=== PATIENT | female | born 1940 | race Caucasian/White ===

== ENCOUNTER 2018-08-15 15:08 | Inpatient (IN) | payer MEDICARE, MEDICAID ==
[~2018-08-15] VITALS: Ht 165.1 cm; Wt 67.1 kg
[2018-08-15 15:31] LABS: BASOPHILS # (AUTO) 0.1 K/uL (0.0-8.0); BASOPHILS % (AUTO) 0.9 % (0.0-2.0); EOSINOPHILS # (AUTO) 0.3 K/uL (0.0-0.7); EOSINOPHILS % (AUTO) 4.4 % (0.0-7.0); HEMATOCRIT 36.2 % (36.7-47.1); HEMOGLOBIN 12.1 g/dL (12.5-16.3); LYMPHOCYTES # (AUTO) 2.5 K/uL (20.0-40.0); LYMPHOCYTES % (AUTO) 35.2 % (20.5-51.5); MEAN CORPUSCULAR HEMOGLOBIN 30.7 uug (23.8-33.4); MEAN CORPUSCULAR HGB CONC 33 g/dL (32.5-36.3); MEAN CORPUSCULAR VOLUME 91.8 fL (73.0-96.2); MONOCYTES # (AUTO) 0.5 K/uL (2.0-10.0); MONOCYTES % (AUTO) 7.6 % (0.0-11.0); NEUTROPHILS # (AUTO) 3.7 K/uL (1.8-8.9); NEUTROPHILS % (AUTO) 51.9 % (38.5-71.5); PLATELET COUNT (AUTO) 297 K/uL (152-348); RED BLOOD CELL COUNT(AUTO) 3.94 MIL/uL (4.06-5.63); WHITE BLOOD COUNT (AUTO) 7.2 K/uL (3.6-10.2)
[2018-08-15 15:40] LABS: CARBON DIOXIDE 28 mmol/L (21-32); CHLORIDE 99 mmol/L (98-107); CREATININE 0.7 mg/dL (0.6-1.3); GLUCOSE 108 mg/dL (74-106); POTASSIUM 4.3 mmol/L (3.5-5.1); UREA NITROGEN, BLOOD 11 mg/dL (7-18)
[2018-08-15 15:47] LABS: *BILIRUBIN,URIN NEGATIVE (NEGATIVE); *BLOOD, URINE NEGATIVE (NEGATIVE); *CLARITY,URINE CLEAR (CLEAR); *COLOR,URINE YELLOW (YELLOW); *KETONES,URINE NEGATIVE (NEGATIVE); *UROBILINOGEN,URINE 0.2 E.U./dl (NORMAL); ETHANOL < 3 MG/DL (0-0); LEUKOCYTE ESTERASE ,URINE TRACE (NEGATIVE); NITRITE, URINE NEGATIVE (NEGATIVE); PH,URINE 7.5 (5.0-8.0); UGLUCOSE NEGATIVE (NEGATIVE)
[2018-08-15 15:53] LABS: *AMPHETAMINE, URINE NEGATIVE (NEGATIVE); *BARBITURATE, URINE NEGATIVE (NEGATIVE); *CANNABINOID, URINE NEGATIVE (NEGATIVE); *COCCAINE, URINE NEGATIVE (NEGATIVE); *OPIATE, URINE NEGATIVE (NEGATIVE); *PHENCYCLIDINE SCREEN,URINE NEGATIVE (NEGATIVE); ALANINE AMINOTRANSFERASE 24 U/L (14-59); ALKALINE PHOSPHATASE 67 U/L (50-136); ASPARTATE AMINOTRANSFERASE 16 U/L (15-37); BILIRUBIN,DIRECT 0.1 mg/dL (0.0-0.2); BILIRUBIN,TOTAL 0.3 mg/dL (0.2-1.0); TOTAL PROTEIN, SERUM 7.6 g/dL (6.4-8.2)
[2018-08-15 15:54] LABS: ACETAMINOPHEN < 2.0 ug/mL (10-30)
[2018-08-15 16:00] LABS: SQUAMOUS EPITHELIAL CELL,UR FEW /HPF (NONE SEEN)
[2018-08-15 16:14] LABS: THYROID STIMULATING HORMONE 1.828 mIU/mL (0.358-3.740)
[2018-08-15] MEDS ORDERED: ACET-2154 PO (16:17)
[2018-08-15] MEDS ORDERED: MEMA10TA PO (16:17)
[2018-08-15] MEDS ORDERED: CHOL200074 PO (16:17)
[2018-08-15] MEDS ORDERED: AMLO10TA4 PO (16:17)
[2018-08-15] MEDS ORDERED: DONE10TA11 PO (16:17)
[2018-08-15] MEDS ORDERED: DIVA125C2 PO (16:17)
[2018-08-15] MEDS ORDERED: ALBU18HF2 IH (16:17)
--- NOTE | 2018-08-15 16:24 | NUR ---
pt transfered to floor in stable condition.
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
[2018-08-15] MEDS ORDERED: LORAZEPAM 0.5 MG TABLET PO PRN (17:00)
[2018-08-15] MEDS ORDERED: TEMAZEPAM 7.5 MG CAPSULE PO PRN (17:00)
[2018-08-15] MEDS ORDERED: MAGNESIUM HYDROXIDE 30 ML LIQUID UDC PO PRN (17:00)
[2018-08-15] MEDS ORDERED: ACETAMINOPHEN 325 MG TABLET PO PRN (17:00)
[2018-08-15] MEDS ORDERED: MAG HYDROX/AL HYDROX/SIMETH 30 ML LIQUID UDC PO PRN (17:00)
[2018-08-15 17:14] VITALS: BP 102/66
--- NOTE | 2018-08-15 20:10 | NUR ---
Received pt in the dining room watching tv and answering word puzzle. AAO x2-3. No acute distress noted. No c/o pain or discomfort. Denies S/I. Safety measures maintained. Will continue to monitor.
[2018-08-15 20:36] VITALS: BP 136/82
--- NOTE | 2018-08-15 20:44 | NUR ---
Pt noted to be anxious. Initiated conversation with pt and reorientation provided. Ativan 0.5 mg PO given as ordered. Pt also requested for sandwich and was provided. Continue to monitor.
[2018-08-15] MEDS ORDERED: ALBUTEROL SULFATE 8 GM HFA.AER.AD IH PRN (21:45)
[2018-08-16 07:30] VITALS: BP 141/54
[2018-08-16] MEDS ORDERED: ALBUTEROL SULFATE 2.5 MG/3 ML NEBU NEB PRN (08:30)
[2018-08-16] MEDS: CHOLECALCIFEROL 1,000 UNIT TABLET PO SCH (09:32)
[2018-08-16] MEDS: ASPIRIN 81 MG TAB.CHEW PO SCH (09:33)
[2018-08-16] MEDS: AMLODIPINE 10 MG TABLET PO SCH (09:33)
[2018-08-16] MEDS: DIVALPROEX SPRINKLE 125 MG CAP.SPRINK PO SCH ×2 (13:30→20:32)
[2018-08-16] MEDS: busPIRone 5 MG TABLET PO SCH (17:00)
[2018-08-16 20:02] VITALS: BP 143/43
[2018-08-16] MEDS: ATORVASTATIN 10 MG TABLET PO SCH (20:32)
[2018-08-16] MEDS: QUETIAPINE FUMARATE 25 MG TABLET PO SCH (20:32)
--- NOTE | 2018-08-17 06:45 | NUR ---
GPS: REMAIN CONFUSED AND DISORIENTED. COOPERATIVE WITH MEDICATION. REFUSED SHOWER THIS MORNING. SLEPT 6:30 HRS THROUGH THE NIGHT. RESTING IN BED COMFORTABLY. NO AGGRESSIVE BEHAVIOR NOTED CONTINUE PLAN OF CARE.
[2018-08-17] MEDS: ASPIRIN 81 MG TAB.CHEW PO SCH (08:37)
[2018-08-17] MEDS: busPIRone 5 MG TABLET PO SCH ×2 (08:37→17:00)
[2018-08-17] MEDS: DIVALPROEX SPRINKLE 125 MG CAP.SPRINK PO SCH ×2 (08:37→20:29)
[2018-08-17] MEDS: AMLODIPINE 10 MG TABLET PO SCH (08:37)
[2018-08-17] MEDS: QUETIAPINE FUMARATE 25 MG TABLET PO SCH ×2 (08:37→20:30)
[2018-08-17] MEDS: CHOLECALCIFEROL 1,000 UNIT TABLET PO SCH (08:38)
--- NOTE | 2018-08-17 18:18 | NUR ---
patient is alert and oriented x3, refused all medication today .
[2018-08-17] MEDS: ATORVASTATIN 10 MG TABLET PO SCH (20:29)
[2018-08-17 20:36] VITALS: BP 166/56
--- NOTE | 2018-08-17 20:58 | NUR ---
Watching TV in activity room a/o x4 Denies of any distress. Took her hs medication.
--- NOTE | 2018-08-18 06:20 | NUR ---
Slept 7.0 hr during the shift refusing am shower. Denies of any distress
[2018-08-18 07:30] VITALS: BP 130/64
[2018-08-18] MEDS: busPIRone 5 MG TABLET PO SCH ×2 (09:47→16:26)
[2018-08-18] MEDS: CHOLECALCIFEROL 1,000 UNIT TABLET PO SCH (09:47)
[2018-08-18] MEDS: DIVALPROEX SPRINKLE 125 MG CAP.SPRINK PO SCH ×2 (09:47→20:32)
[2018-08-18] MEDS: AMLODIPINE 10 MG TABLET PO SCH (09:48)
[2018-08-18] MEDS: QUETIAPINE FUMARATE 25 MG TABLET PO SCH ×2 (09:48→20:32)
[2018-08-18] MEDS: ASPIRIN 81 MG TAB.CHEW PO SCH (09:48)
--- NOTE | 2018-08-18 14:10 | NUR ---
received patient alert on chair watching tv , compliant to medication , no sob , no distress , patient participates with group activity,
--- NOTE | 2018-08-18 14:10 | NUR ---
Initial Discharge Plan: Patient is a 78 year old female who currently resides at [facility] [[address] [place] [address]; ]. Per Karina Cain, group sales coordinator, patient may return to facility within 7-day bed-hold. Patient granddaughter, Luly Chatterjee [ ], is agreeable with patient returning to facility. plywood factory worker will continue to collaborate with patient, patient family, and MD on a safe and proper discharge.
[2018-08-18 15:59] VITALS: BP 134/60
[2018-08-18] MEDS: ATORVASTATIN 10 MG TABLET PO SCH (20:32)
[2018-08-18 20:36] VITALS: BP 141/59
--- NOTE | 2018-08-19 04:58 | NUR ---
Patient received watching TV in the TV room, AAO x4, forgetful. No sign of acute distress or SOB was noted. Pleasant upon approach, cooperative and calm with depressed mood. Complaint with medication. Patient was stable and had a good sleep last night. All medication given and well tolerated. Safety measures maintained. Will continue to monitor and endorse to the day shift nurse accordingly.
[2018-08-19 07:30] VITALS: BP 162/62
[2018-08-19] MEDS: ASPIRIN 81 MG TAB.CHEW PO SCH ×2 (09:00→09:54)
[2018-08-19] MEDS: QUETIAPINE FUMARATE 25 MG TABLET PO SCH ×3 (09:00→21:31)
[2018-08-19] MEDS: CHOLECALCIFEROL 1,000 UNIT TABLET PO SCH ×2 (09:00→09:54)
[2018-08-19] MEDS: DIVALPROEX SPRINKLE 125 MG CAP.SPRINK PO SCH ×3 (09:00→21:30)
[2018-08-19] MEDS: busPIRone 5 MG TABLET PO SCH ×3 (09:00→16:37)
--- NOTE | 2018-08-19 09:00 | NUR ---
Patient intially agreed to take meduications. When coming back to grab water for the patient. Patient refused all medications with the exception of her blood pressure medications. After educating the patient about benefits and risk of prescribed medications, patient stated "no i dont want to take the medication, it is not what my doctor gives me. i will not take what the doctors newly prescribed for me"
[2018-08-19] MEDS: AMLODIPINE 10 MG TABLET PO SCH (09:55)
--- NOTE | 2018-08-19 18:50 | NUR ---
Patient is alert and oriented x3. Patient spent most of the day in the [facility] room watching TV. initally patient was not compliant with medication but was compliant with evening meds. Patient is able to carry out ADLs independently. Patient is ins table condition and denies any pain or discomfort at this time. patient shows no signs of respiratory distress. Patient denies any Si at this time. Will continue to monitor and endorse poc to the shift production associate.
[2018-08-19 20:00] VITALS: BP 152/67
[2018-08-19] MEDS: ATORVASTATIN 10 MG TABLET PO SCH (21:31)
[2018-08-20 07:30] VITALS: BP 160/70
[2018-08-20] MEDS: AMLODIPINE 10 MG TABLET PO SCH (08:40)
[2018-08-20] MEDS: QUETIAPINE FUMARATE 25 MG TABLET PO SCH ×2 (08:40→20:15)
[2018-08-20] MEDS: busPIRone 5 MG TABLET PO SCH ×2 (08:42→16:34)
[2018-08-20] MEDS: CHOLECALCIFEROL 1,000 UNIT TABLET PO SCH (08:42)
[2018-08-20] MEDS: ASPIRIN 81 MG TAB.CHEW PO SCH (08:42)
[2018-08-20] MEDS: DIVALPROEX SPRINKLE 125 MG CAP.SPRINK PO SCH ×2 (08:42→20:15)
--- NOTE | 2018-08-20 09:00 | NUR ---
Patient refuses morning medications. patient only wants to take her blood pressure medication. Patient stated" i have no cognitive impairment, there is nothing wrong with me, I dont need any other medications" After discussing benefits and risk of medication administration. Patient still refuses to take medication and non compliance to medication administration.
--- NOTE | 2018-08-20 15:50 | NUR ---
PROCESS GROUP NOTE: Patients were asked to discuss their thoughts on what knowledge or "life lessons" they would pass on to a younger generation. Subjective: "I would tell people to get along with one another better" Objective: Patient sat calmly in group and appeared to listen to peers. When it was patient's turn to speak, patient appeared to reflect on answer. Assessment: Patient sat well in group and actively participated. heater worker did not need to intervene or re-direct as patient stayed on topic. Plan: heater worker will continue to encourage group attendance as scheduled. heater worker will continue to provide encouragement and support during [facility] admission
[2018-08-20 16:00] VITALS: BP 143/57
--- NOTE | 2018-08-20 18:14 | NUR ---
Patient spent most of the day in the activity room watching TV. patient refused morning medications but was compliant with the evening medications. patient keeps to self in the activity room and does not communicate with other residents or staff members. patient did shower today and is well kempt. Patient is able to verbalize needs and needs have been met. Patient continues to isolate herself and not communicate through out the day. Will continue to monitor and endorse plan of care to the shift mgr.
[2018-08-20 20:01] VITALS: BP 137/83
[2018-08-20] MEDS: ATORVASTATIN 10 MG TABLET PO SCH (20:15)
[2018-08-21 07:30] VITALS: BP 129/73
[2018-08-21] MEDS: DIVALPROEX SPRINKLE 125 MG CAP.SPRINK PO SCH (08:53)
[2018-08-21] MEDS: AMLODIPINE 10 MG TABLET PO SCH (08:54)
[2018-08-21] MEDS: CHOLECALCIFEROL 1,000 UNIT TABLET PO SCH (08:55)
[2018-08-21] MEDS: busPIRone 5 MG TABLET PO SCH ×3 (08:55→17:34)
[2018-08-21] MEDS: QUETIAPINE FUMARATE 25 MG TABLET PO SCH (08:55)
[2018-08-21] MEDS: ASPIRIN 81 MG TAB.CHEW PO SCH (08:56)
--- NOTE | 2018-08-21 12:22 | NUR ---
Firearms report: warm in worker completed and submitted a [employer] firearms report for a 5150 DTO certification.
--- NOTE | 2018-08-21 14:34 | NUR ---
DISCHARGE NOTE: Patient will be discharged back to [facility] [[address] [place], [place] [id number]: ] and transportation will be provided by ambulance at 5:00pm. Please arrange ambulance transportation for this patient. Acceptance back to facility has been confirmed by Karina Cain, payroll and benefits coordinator, at facility who states they are ready to accept the patient back today. Patients granddaughter, Luly Chatterjee [[phone]], has been notified of discharge and is aware and agreeable with plan. Patient is alert and oriented x1-2, denies SI/HI, and is aware and agreeable with discharge plans. Patient will follow-up with Dr. Feldman (primary care physician) and Dr. Brice (psychiatrist) at the facility. Patient has been provided with outpatient mental health resources to [facility] Crisis Line [ ], [facility] [ ], and the National Suicide Prevention Lifeline [ ].
[2018-08-21 16:00] VITALS: BP 113/48
--- NOTE | 2018-08-21 17:57 | NUR ---
1500 CALLED [facility] TO INFORMED PATIENT WILL BE DISCHARGED BACK TO THEIR FACILITY SPOKE WITH MICHAEL COPELAND GRAVITY METER OPERATOR AND REPORT GIVEN REGARDING PATIENT MEDICAL AND MENTAL STATUS, STABLE. pATIENT CHARLES SI/ HI. NO DELUSION. NO A/V HALLUCINATION NOTED. PATIENT WILL BE PICKED UP 1814 [facility]IA AMBULANCE.
--- NOTE | 2018-08-21 18:31 | NUR ---
1830 PATIENT DISCHARGED TO [facility] [place] [facility] STABLE CONDITION.
== END 2018-08-21 18:30 | DRG 885 ==
LOC: EDSEX 15:08 → ER 15:08 → GPS 16:11
PROVIDERS: ADMIT Psychiatry & Neurology Psychiatry; ATTEND Nurse Practitioner Acute Care
DX: F29 Unspecified psychosis not due to a substance or known physiological condition (principal); F03.91 Unspecified dementia, unspecified severity, with behavioral disturbance; E87.1 Hypo-osmolality and hyponatremia; G93.40 Encephalopathy, unspecified; I10 Essential (primary) hypertension; I25.10 Atherosclerotic heart disease of native coronary artery without angina pectoris; Z66 Do not resuscitate; F41.9 Anxiety disorder, unspecified; E78.5 Hyperlipidemia, unspecified; E55.9 Vitamin D deficiency, unspecified; E03.9 Hypothyroidism, unspecified; D63.8 Anemia in other chronic diseases classified elsewhere
CPT/HCPCS: 36415; 71045; 80307; 84443; 85025; 93005; A4663; G0480; G0480-TC